=== PATIENT | female | born 1955 | race Caucasian/White ===

== ENCOUNTER 2018-01-28 11:00 | Inpatient (IN) | payer OTHER ==
[~2018-01-28] VITALS: Ht 154.9 cm; Wt 55.0 kg
[2018-01-28] MEDS ORDERED: PERCOCET PO (11:25)
[2018-01-28] MEDS ORDERED: DIVALPROEX PO (11:25)
[2018-01-28 12:04] LABS: BASOPHILS # (AUTO) 0.03 x10^3/uL (0-0.1); BASOPHILS % (AUTO) 1 % (0-1); EOSINOPHILS # (AUTO) 0.11 x10^3/uL (0-0.4); EOSINOPHILS % (AUTO) 2 % (1-7); LYMPHOCYTES # (AUTO) 1.32 x10^3/uL (1-3.4); LYMPHOCYTES % (AUTO) 20 % (22-44); MD NO; MEAN CORPUSCULAR HEMOGLOBIN 31.6 pg (27.0-34.8); MEAN CORPUSCULAR HGB CONC 32.9 g/dL (32.4-35.8); MEAN CORPUSCULAR VOLUME 96.2 fL (80-100); MEAN PLATELET VOLUME 7.7 fL (7.4-10.4); MONOCYTES # (AUTO) 0.47 x10^3/uL (0.2-0.8); MONOCYTES % (AUTO) 7 % (2-9); NEUTROPHILS # (AUTO) 4.71 x10^3/uL (1.8-6.8); NEUTROPHILS % (AUTO) 71 % (42-75); PLATELET COUNT 439 x10^3/uL (130-400); RED BLOOD COUNT 3.99 x10^6/uL (3.82-5.3); RED CELL DISTRIBUTION WIDTH 15.6 % (9.6-15.2)
[2018-01-28 12:07] LABS: PROTHROMBIN TIME 10.4 Seconds (9.6-11.5)
[2018-01-28 12:09] LABS: ANION GAP 5 mmol/L (5-15); CALCIUM 9.1 mg/dL (8.5-10.1); CHLORIDE 109 mmol/L (98-107); CREATININE 0.66 mg/dL (0.55-1.02)
[2018-01-28 12:23] LABS: CULTURE INDICATED? YES; MICROSCOPIC INDICATED
[2018-01-30] MEDS ORDERED: EPINEPHRINE 1 MG/ML, 1ML ONE (06:15)
[2018-01-30] MEDS ORDERED: BUPIVACAINE/PF 0.5% ONE (06:15)
[2018-01-30] MEDS ORDERED: THROMBIN 5,000 UNIT VIAL TP ONE (06:15)
[2018-01-30] MEDS ORDERED: BACITRACIN 50,000 UNIT ONE (06:16)
[2018-01-30] MEDS ORDERED: DIVALPROEX PO ×2 (06:20)
[2018-01-30] MEDS ORDERED: METH500T7 PO (06:20)
[2018-01-30] MEDS ORDERED: SUMATRIPTAN PO (06:20)
[2018-01-30] MEDS ORDERED: CYCL-259 PO (06:20)
[2018-01-30] MEDS ORDERED: MELO15TA6 PO (06:20)
[2018-01-30] MEDS ORDERED: LACTATED RINGERS 1,000 ML IV SCH (06:20)
[2018-01-30] MEDS ORDERED: AMITRIPTYLINE PO (06:20)
[2018-01-30] MEDS ORDERED: OXYC-307 PO (06:28)
[2018-01-30] MEDS ORDERED: MIDAZOLAM 1 MG/ML, 2ML ONE (06:34)
[2018-01-30] MEDS ORDERED: FENTANYL PF 250 MCG/5ML ONE (06:34)
[2018-01-30] MEDS ORDERED: OxyconTIN ER 10 MG TAB.ER ONE (06:44)
[2018-01-30] MEDS ORDERED: GABAPENTIN 300 MG CAPSULE ONE (06:44)
[2018-01-30] MEDS ORDERED: GABAPENTIN 300 MG CAPSULE PO ONE (07:00)
[2018-01-30] MEDS ORDERED: OxyconTIN ER 10 MG TAB.ER PO ONE (07:00)
[2018-01-30] MEDS ORDERED: ACETAMINOPHEN 500 MG TABLET PO ONE (07:00)
[2018-01-30] MEDS ORDERED: FENTANYL PF 100 MCG/2ML IV PRN (07:30)
[2018-01-30] MEDS ORDERED: OXYcodone 5 MG/5 ML ORAL.SOL UDC PO PRN (07:30)
[2018-01-30] MEDS ORDERED: hydrALAzine 20 MG/ML, 1ML IV PRN (07:30)
[2018-01-30] MEDS ORDERED: ONDANSETRON 2MG/ML, 2ML IVPush PRN (07:30)
[2018-01-30] MEDS ORDERED: ACETAMINOPHEN 325 MG TABLET PO PRN (07:30)
[2018-01-30] MEDS ORDERED: LABETALOL 5MG/ML, 20ML IV PRN ×2 (07:30→10:30)
[2018-01-30] MEDS ORDERED: METOCLOPRAMIDE 5 MG/ML, 2ML IV PRN (07:30)
[2018-01-30] MEDS ORDERED: OXYcodone 5 MG/5 ML ORAL.SOL UDC ONE (08:53)
[2018-01-30] MEDS ORDERED: hydrALAzine 20 MG/ML, 1ML ONE (08:53)
[2018-01-30] MEDS ORDERED: HYDROmorphone 2 MG/ML, 1ML ONE (08:53)
[2018-01-30] MEDS: HYDROmorphone 1 MG/ML, 1ML IV PRN ×2 (08:56→09:11)
[2018-01-30] MEDS ORDERED: PROMETHAZINE 25 MG/ML, 1ML IM PRN (10:30)
[2018-01-30] MEDS ORDERED: ONDANSETRON 2MG/ML, 2ML IV PRN (10:30)
[2018-01-30] MEDS ORDERED: MAGNESIUM HYDROXIDE 8%, 30ML UDC PO PRN (10:30)
[2018-01-30] MEDS ORDERED: DIPHENHYDRAMINE 50 MG CAPSULE PO PRN (10:30)
[2018-01-30] MEDS ORDERED: BISACODYL 10 MG SUPP PR PRN (10:30)
[2018-01-30] MEDS ORDERED: HYDROcodone/APAP 10/325 MG TABLET PO PRN (10:30)
[2018-01-30] MEDS ORDERED: ONDANSETRON ODT 4 MG PO PRN (10:30)
[2018-01-30] MEDS ORDERED: morphine SULFATE 10 MG/ML, 1ML IV PRN (10:30)
[2018-01-30] MEDS: CEPHALEXIN 500 MG CAPSULE PO SCH ×3 (11:00→20:59)
[2018-01-30] MEDS ORDERED: CEFAZOLIN 1,000 MG ONE (11:14)
[2018-01-30] MEDS ORDERED: SUCCINYLCHOLINE 20 MG/ML, 10ML ONE (11:14)
[2018-01-30] MEDS ORDERED: PROPOFOL 10 MG/ML, 50ML ONE (11:14)
[2018-01-30] MEDS ORDERED: DEXAMETHASONE 4 MG/ML, 1ML ONE (11:14)
[2018-01-30] MEDS ORDERED: ROCURONIUM 10 MG/ML,10ML ONE (11:14)
[2018-01-30] MEDS: DEXAMETHASONE 4 MG/ML, 1ML IV SCH ×3 (11:23→22:21)
[2018-01-30] MEDS: D5%-0.9% NACL+KCL 20MEQ 1,000 ML IV SCH (11:24)
[2018-01-30] MEDS: OXYcodone/APAP 5/325MG TABLET PO PRN ×3 (14:04→22:21)
[2018-01-30] MEDS: CEFAZOLIN 1,000 MG in DEXTROSE 5% 50 ML IVPB SCH (17:07)
[2018-01-30 20:08] VITALS: BP 117/74
[2018-01-30] MEDS ORDERED: ZOLPIDEM 5MG TABLET PO PRN (21:00)
[2018-01-30] MEDS ORDERED: CEFAZOLIN PMX 1GM/50ML 50 ML ONE (23:53)
[2018-01-31 00:19] VITALS: BP 144/84
[2018-01-31] MEDS: D5%-0.9% NACL+KCL 20MEQ 1,000 ML IV SCH (00:39)
[2018-01-31] MEDS: CEFAZOLIN 1,000 MG in DEXTROSE 5% 50 ML IVPB SCH (00:50)
[2018-01-31] MEDS: OXYcodone/APAP 5/325MG TABLET PO PRN ×2 (02:37→07:12)
[2018-01-31 03:49] VITALS: BP 124/75
[2018-01-31] MEDS: DEXAMETHASONE 4 MG/ML, 1ML IV SCH (04:39)
[2018-01-31] MEDS: CEPHALEXIN 500 MG CAPSULE PO SCH (06:00)
[2018-01-31 07:42] VITALS: BP 150/83
[2018-01-31] MEDS ORDERED: SENNA/DOCUSATE TABLET PO SCH (09:00)
[2018-01-31] MEDS ORDERED: OXYC-302 PO (09:50)
[2018-01-31] MEDS ORDERED: CEPH-368 PO (09:51)
[2018-01-31] MEDS ORDERED: CYCL-259 PO (09:51)
[2018-01-31] MEDS ORDERED: METH4TAB2 PO (09:51)
[2018-01-31] MEDS ORDERED: OMEP20TA62 PO (09:52)
== END 2018-01-31 09:58 | disposition home or self-care (01) | DRG 472 ==
LOC: ORIP 01-30 05:24 → 4NOR 01-30 09:54 → EDSTATUS 01-30 10:30 → DCLOUNGE 01-31 09:48
PROVIDERS: ADMIT Neurological Surgery; ATTEND Neurological Surgery
PROC: 0RB30ZZ Excision of Cervical Vertebral Disc, Open Approach (ICD-10-PCS; 2018-01-30)
PROC: 4A11X4G Monitoring of Peripheral Nervous Electrical Activity, Intraoperative, External Approach (ICD-10-PCS; 2018-01-30)
PROC: 0RG10A0 Fusion of Cervical Vertebral Joint with Interbody Fusion Device, Anterior Approach, Anterior Column, Open Approach (ICD-10-PCS; principal; 2018-01-30 07:00)
DX: M48.02 Spinal stenosis, cervical region (principal); M47.12 Other spondylosis with myelopathy, cervical region; M50.21 Other cervical disc displacement, high cervical region; Z72.89 Other problems related to lifestyle; F17.200 Nicotine dependence, unspecified, uncomplicated; M47.22 Other spondylosis with radiculopathy, cervical region; Z98.51 Tubal ligation status
CPT/HCPCS: 36415; 71046; 72040; 80048; 81001; 85025; 85610; 85730; 87070; 87075; 87077; 87086; 87102; 87176; 87186; 87205; 93005; C1713; J0171; J0690; J1100; J1170; J2250; J2704; J3010; J3490; C1762; J0330; J0360; J3480; J7120